=== PATIENT | male | born 2000 | race Caucasian/White ===

== ENCOUNTER 2025-05-05 22:15 | Emergency (ER) | payer BC, SELFPAY ==
[2025-05-05 22:17] VITALS: BP 165/91
--- NOTE | 2025-05-05 23:34 | ED.GENMED ---
History of Present Illness
General
Chief Complaint: Musculo-Skeletal Complaint
Source: patient
Time Seen by Provider: 05/05/25 22:56
History of Present Illness
History of Present Illness:
25-year-old male presenting the emergency department for evaluation of left knee pain and swelling after playing basketball noting that he believes he likely hyperextended the knee but is having a hard time ambulating secondary to the pain.
Previous history of patellar dislocation in the same knee but no residual complications. No other injury sustained this evening.
Past History
Past History
ED Past Medical History: Asthma
ED Past Surgical History: None
Social History
Tobacco: Non-smoker
Alcohol: None
Drug: None
Personal: Single
Living: with family
Review of Systems
Review of Systems
All Other Systems: ROS reviewed and negative except as documented in HPI and ROS
Phy Exam
Physical Exam
Physical Exam:
GENERAL: Alert , in no apparent distress
EYE: conjunctiva clear
Head: Normocephalic atraumatic
NECK: Supple,
ENT: mmm.
LUNGS: no acute respiratory distress
NEUROLOGICAL: Alert and oriented
SKIN: Warm and dry, skin intact.
MUSCULOSKELETAL: Left knee: Soft tissue swelling and joint effusion noted. Diffuse tenderness anteriorly. Range of motion limited secondary to the pain as well as edema. Extremity is otherwise warm well-perfused and neurovascularly intact. There
is no laxity to the quadriceps tendon nor patellar tendon
PSYCH: Normal and appropriate interaction.
Scores
Heart Failure Risk
Heart Failure Risk Score: Not Applicable
Heart Score for Chest Pain Patients
STEMI patient?: Not applicable
Withdrawal Assessment of Alcohol
Withdrawal Assessment Completed?: Not applicable
Course
Orders/Labs/Results
Orders:
Orders
05/05/25 22:19
Knee, Left 4 or More Views [CR Knee - Left 4 Or More View*] Urgent
Comment:
Reason For Exam: pain/injury
05/05/25 23:34
Crutches-Treatment ONCE
Knee Immobilizer Left-Treatmen ONCE
Vital Signs
Initial and Last Documented VS:
Initial Vital Signs
Temp Pulse Resp BP Pulse Ox
97.4 F 93 18 165/91 98
05/05/25 22:17 05/05/25 22:17 05/05/25 22:17 05/05/25 22:17 05/05/25 22:17
Last Documented Vital Signs
Temp Pulse Resp BP Pulse Ox
97.4 F 85 18 132/88 99
05/05/25 22:17 05/05/25 23:59 05/05/25 23:59 05/05/25 23:59 05/05/25 23:59
MDM/Problems Addressed
Differential Diagnosis Includes:
Ligamentous injury
Meniscus injury
Contusion
Tendon rupture
MDM/Problems Addressed:
25-year-old male presenting to the ER for evaluation of left knee pain and swelling and a basketball injury. X-ray performed shows no fracture. They stopped the mechanism I do have considerable concern for ligamentous injury. Patient to be placed
in knee immobilizer, crutches, RICE recommendations discussed, NSAIDs as needed for pain. Follow-up with Ortho.
*Radiology
Radiology exam reviewed: preliminary read by ED provider (no fx, joint effusion noted)
*Pulse Oximetry
SaO2: 98
Oxygen Mode of Delivery: Room air
Patient hypoxic: no
*Critical Care Note
Total Time (30-74mins, 75-104mins- exclusive of procedures): Not Applicable
ED Attending Note
-
Portions of this chart may have been created with voice recognition software.� Occasional wrong word or��sound alike� substitutions may have occurred due to the inherent limitations of voice recognition software.
Discharge Plan
Departure
Patient Disposition: Home (Routine Discharge)
Date of Disposition: 05/05/25
Time of Disposition: 23:34
Patient with high blood pressure during this ER visit?: Yes
Discharge Problem:
Injury of left knee
Instructions: Ligament Injuries in the Knee (DC)
Prescriptions:
No Action
cephalexin 500 mg capsule
500 mg PO BID Qty: 10 0RF
Referrals:
Regan Castro MD [Active, Orthopedics]
NONE,* [Family Provider, Internal Medicine]
Interventions
Interventions:
*Risk Screen - Suicide Last Done: 05/05/25 22:17
*General Assessment Last Done: 05/05/25 23:01
*Neglect/Abuse Screening Last Done: 05/05/25 22:17
*ED COVID-19 Vaccine History Last Done: 05/05/25 23:01
*ED Influenza Vaccine History Last Done: 05/05/25 23:01
*Nursing Disposition Last Done: 05/06/25 00:00
ED-Musculoskeletal Assessment Last Done: 05/05/25 23:01
Discharge Date and Time
Discharge Date/Time: 05/06/25 00:05
Print Language: INDONESIAN
[2025-05-05 23:59] VITALS: BP 132/88
== END 2025-05-06 00:05 | disposition home or self-care (01) ==
LOC: EMR 22:15
PROVIDERS: EMERGENCY PHYSICIAN Emergency Medicine
DX: S89.92XA Unspecified injury of left lower leg, initial encounter (principal); X58.XXXA Exposure to other specified factors, initial encounter; Y93.67 Activity, basketball; J45.909 Unspecified asthma, uncomplicated
CPT/HCPCS: 29505; 99283; 73564